=== PATIENT | female | born 1985 | race Two or more races ===

== ENCOUNTER 2023-08-02 15:36 | Emergency (ER) | payer MEDICAID, OTHER ==
[~2023-08-02] VITALS: Ht 162.6 cm; Wt 99.6 kg
[2023-08-02 16:10] VITALS: BP 125/81; PULSE 85; RESP 16; O2SAT 97
[2023-08-04] MEDS ORDERED: CYCL-838 PO (19:26)
[2023-08-04] MEDS ORDERED: NAP500T PO (19:26)
[2023-08-04] MEDS ORDERED: HYDR-4902 PO (19:26)
== END 2023-08-03 03:33 | disposition left against medical advice (07) ==
LOC: ER 15:36
DX: M79.652 Pain in left thigh (principal); Z53.21 Procedure and treatment not carried out due to patient leaving prior to being seen by health care provider
CPT/HCPCS: 93971

== ENCOUNTER 2023-08-04 09:09 | Emergency (ER) | payer MEDICAID ==
[~2023-08-04] VITALS: Ht 165.1 cm; Wt 99.5 kg
[2023-08-04 10:09] LABS: Basophils # (auto) 0.1 10 ^3/uL (0-0.2); Basophils % (auto) 0.6 % (0.0-2.0); Eosinophils # (auto) 0.1 10 ^3/uL (0-0.8); Eosinophils % (auto) 0.9 % (0.0-7.0); Hematocrit 40.4 % (36.0-46.0); Hemoglobin 13.6 g/dL (12.2-16.2); Lymphocytes # (auto) 2.2 10 ^3/uL (0.4-5.4); Lymphocytes % (auto) 23.2 % (10.0-50.0); Mean Corpuscular Hemoglobin 29.8 pg (28.0-32.0); Mean Corpuscular Hgb Conc. 33.7 g/dL (32.0-36.0); Mean Corpuscular Volume 88.6 fL (80.0-100.0); Monocytes # (auto) 0.6 10 ^3/uL (0-1.3); Monocytes % (auto) 6.7 % (0.0-12.0); Neutrophils # (auto) 6.6 10 ^3/uL (1.6-8.6); Neutrophils % (auto) 68.6 % (37.0-80.0); Nucleated Red Blood Cells % 0.1 %; Red Blood Cells 4.56 10^6/uL (4.0-5.20); Red Cell Distribution Width 14.4 % (11.8-14.3); White Blood Cell 9.6 10^3/uL (4.4-10.8)
[2023-08-04 10:14] LABS: Alanine Aminotransferase 39 U/L (7-40); Albumin 4.3 g/dL (3.2-4.8); Alkaline Phosphatase 89 U/L (46-116); Anion Gap 10 (5-15); Aspartate Aminotransferase 23 U/L (13-40); BUN/Creatinine Ratio 6.1 (10.0-20.0); Blood Urea Nitrogen 5 mg/dL (9-23); Calcium 9.1 mg/dL (8.5-10.1); Carbon Dioxide 23 mmol/L (20-30); Chloride 107 mmol/L (98-107); Glucose 120 mg/dL (74-106); Potassium 3.6 mmol/L (3.5-5.1); Sodium 140 mmol/L (136-145)
[2023-08-04 10:15] LABS: Bilirubin, Total 1.1 mg/dL (0.2-1.0); Total Protein 7.5 g/dL (5.7-8.2)
[2023-08-04 10:50] VITALS: PULSE 83; RESP 15; O2SAT 96
[2023-08-04 10:52] VITALS: TEMP 97.6
[2023-08-04] MEDS ORDERED: METOCLOPRAMIDE HCL 5MG/ml INJ 2ml VIAL IV ONE ×2 (12:30→13:30)
[2023-08-04] MEDS ORDERED: KETOROLAC TROMETH 30 MG/ML 1ML VIAL IV ONE (12:30)
[2023-08-04] MEDS ORDERED: KETOROLAC TROMETH 60MG/2ML VIAL IM ONE (13:15)
[2023-08-04 19:21] VITALS: PULSE 80; RESP 14; O2SAT 95
[2023-08-04] MEDS ORDERED: NAP500T PO (19:26)
[2023-08-04] MEDS ORDERED: HYDR-4902 PO (19:26)
[2023-08-04] MEDS ORDERED: CYCL-838 PO (19:26)
[2023-08-04 20:06] VITALS: BP 116/74; PULSE 80; RESP 14; O2SAT 95
== END 2023-08-04 20:20 | disposition home or self-care (01) ==
LOC: ER 09:09
DX: M79.652 Pain in left thigh (principal); C79.89 Secondary malignant neoplasm of other specified sites; C73 Malignant neoplasm of thyroid gland; Z85.850 Personal history of malignant neoplasm of thyroid
CPT/HCPCS: 36415; 72131; 80053; 84443; 85025; 85379; 93926; 96372; 96374; 99285; J1885; J2765

== ENCOUNTER 2024-01-24 12:28 | Emergency (ER) | payer MEDICAID ==
[~2024-01-24] VITALS: Ht 162.6 cm; Wt 108.6 kg
[~2024-01-24 12:28] MED LIST: CYCL-838 PO; HYDR-4902 PO; NAP500T PO
[2024-01-24 13:24] LABS: Basophils # (auto) 0.1 10 ^3/uL (0-0.2); Basophils % (auto) 0.7 % (0.0-2.0); Eosinophils # (auto) 0.1 10 ^3/uL (0-0.8); Eosinophils % (auto) 0.8 % (0.0-7.0); Hematocrit 38.3 % (36.0-46.0); Hemoglobin 12.9 g/dL (12.2-16.2); Lymphocytes # (auto) 2.4 10 ^3/uL (0.4-5.4); Lymphocytes % (auto) 28.3 % (10.0-50.0); Mean Corpuscular Hemoglobin 30.2 pg (28.0-32.0); Mean Corpuscular Hgb Conc. 33.6 g/dL (32.0-36.0); Mean Corpuscular Volume 89.7 fL (80.0-100.0); Monocytes # (auto) 0.4 10 ^3/uL (0-1.3); Monocytes % (auto) 4.7 % (0.0-12.0); Neutrophils # (auto) 5.6 10 ^3/uL (1.6-8.6); Neutrophils % (auto) 65.5 % (37.0-80.0); Red Blood Cells 4.28 10^6/uL (4.0-5.20); Red Cell Distribution Width 16.4 % (11.8-14.3); White Blood Cell 8.6 10^3/uL (4.4-10.8)
[2024-01-24 13:36] LABS: Alanine Aminotransferase 21 U/L (7-40); Albumin 4.4 g/dL (3.2-4.8); Alkaline Phosphatase 91 U/L (46-116); Anion Gap 5 (5-15); Aspartate Aminotransferase 30 U/L (13-40); BUN/Creatinine Ratio 12.6 (10.0-20.0); Bilirubin, Total 0.7 mg/dL (0.2-1.0); Blood Urea Nitrogen 12 mg/dL (9-23); Calcium 9.1 mg/dL (8.5-10.1); Carbon Dioxide 32 mmol/L (20-30); Chloride 102 mmol/L (98-107); Glucose 87 mg/dL (74-106); Sodium 139 mmol/L (136-145)
[2024-01-24 13:37] LABS: Total Protein 7.3 g/dL (5.7-8.2)
[2024-01-24] MEDS: ASPirin 81 mg TAB PO ONE (16:31)
[2024-01-24 16:48] VITALS: PULSE 66; RESP 16; O2SAT 97
[2024-01-24] MEDS ORDERED: IOHEXOL 350 MG/ML 100ML IJ ONE (18:16)
[2024-01-24 20:10] VITALS: BP 146/99; PULSE 58; RESP 18; O2SAT 96
== END 2024-01-24 20:12 | disposition home or self-care (01) ==
LOC: ER 12:28
DX: R07.89 Other chest pain (principal); R42 Dizziness and giddiness
CPT/HCPCS: 36415; 71046; 71275; 80053; 84484; 85025; 85379; 93005; 99285; Q9967